=== PATIENT | female | born 1940 | race Caucasian/White ===

== ENCOUNTER 2023-08-01 06:55 | Inpatient (IN) | payer OTHER ==
[~2023-08-01] VITALS: Ht 165.1 cm; Wt 104.3 kg
[2023-08-01] VITALS (11 sets, daily range): BP systolic 113–195; BP diastolic 51–89; PULSE 78–132; RESP 12–32; TEMP 97.3–98.3; O2SAT 90–100
[2023-08-01] MEDS ORDERED: methylPREDNISolone SS 125 MG/2 ML VIAL IVP ONE (07:05)
[2023-08-01] MEDS ORDERED: ALBUTEROL SULFATE/IPRATROPIU 3 ML SOL IH ONE (07:05)
[2023-08-01] MEDS ORDERED: NACL 0.9% 500 ML IV SCH (07:05)
[2023-08-01] MEDS ORDERED: NITROGLYCERIN 0.4 MG TAB SL ONE (07:20)
[2023-08-01] MEDS ORDERED: FUROSEMIDE 40 MG/4 ML VIAL IVP ONE (07:20)
[2023-08-01 07:27] LABS: BASOPHILS # (AUTO) 0.1 K/uL (0.00-0.22); BASOPHILS % (AUTO) 0.5 % (0.0-2.0); EOSINOPHILS # (AUTO) 0.1 K/uL (0-0.4); EOSINOPHILS % (AUTO) 0.7 % (0.0-4.0); HEMATOCRIT 38.3 % (36-48); HEMOGLOBIN 12.2 g/dL (12.0-16.0); LYMPHOCYTES % (AUTO) 19.9 % (20.5-51.1); MEAN CORPUSCULAR HEMOGLOBIN 27 pg (27-31); MEAN CORPUSCULAR HGB CONC 32 g/dL (33-37); MEAN CORPUSCULAR VOLUME 85.9 fL (80-94); MONOCYTES # (AUTO) 1.4 K/uL (0.8-1.0); NEUTROPHILS # (AUTO) 10.6 K/uL (1.8-7.7); NEUTROPHILS % (AUTO) 69.9 % (42.2-75.2); PLATELET COUNT (AUTO) 416 K/uL (140-450); RED BLOOD CELL COUNT(AUTO) 4.46 MIL/uL (4.20-5.40); RED CELL DISTRIBUTION WIDTH 13.5 % (11.6-13.7); WHITE BLOOD COUNT (AUTO) 15.2 K/uL (4.8-10.8)
[2023-08-01 07:32] LABS: INR 0.99 (0.8-1.2); PARTIAL THROMBOPLASTIN TIME 26.3 secs (22-35.6); PROTHROMBIN TIME 10.4 secs (10.8-13.4)
[2023-08-01] MEDS ORDERED: VANCOMYCIN 1,000 MG in DEXTROSE 5% 250 ML IV ONE (07:35)
[2023-08-01] MEDS ORDERED: PIPERACILLIN/TAZOBACTAM 3.375 GM in DEXTROSE 5% 50 ML IV ONE (07:35)
[2023-08-01 07:41] LABS: LACTIC ACID 4.2 mmol/L (0.4-2.0)
[2023-08-01] MEDS ORDERED: PIPERACILLIN/TAZOBACTAM 3.375 GM VIAL IV ONE (07:45)
[2023-08-01 07:48] LABS: ALANINE AMINOTRANSFERASE 19 U/L (12-78); ALBUMIN 2.9 g/dL (3.4-5.0); ALKALINE PHOSPHATASE 134 U/L (50-136); ANION GAP 7.3 (8-16); ASPARTATE AMINOTRANSFERASE 22 U/L (15-37); CARBON DIOXIDE 39.9 mmol/L (21-32); CHLORIDE 83 mmol/L (98-107); GLUCOSE 294 mg/dL (74-106); POTASSIUM 4.2 mmol/L (3.5-5.1); SODIUM SERUM 126 mmol/L (136-145); TOTAL BILIRUBIN 0.4 mg/dL (0.0-1.0); TOTAL PROTEIN, SERUM 7.8 g/dL (6.4-8.2); UREA NITROGEN, BLOOD 12 mg/dL (7-18)
[2023-08-01 07:49] LABS: CREATINE KINASE, TOTAL 103 U/L (26-192); LIPASE 42 U/L (16-77)
[2023-08-01 07:55] LABS: FLU A ANTIGEN negative (NEGATIVE)
[2023-08-01 07:56] LABS: FLU B ANTIGEN negative (NEGATIVE)
[2023-08-01] MEDS ORDERED: VANCOMYCIN 1,000 MG VIAL ONE (08:20)
[2023-08-01] MEDS ORDERED: DILTIAZEM 25 MG/5 ML VIAL IVP ONE (08:30)
[2023-08-01] MEDS ORDERED: DILTIAZEM 30 MG TAB PO ONE (08:55)
[2023-08-01] MEDS ORDERED: HYDR-3320 PO (09:51)
[2023-08-01] MEDS ORDERED: OMEP40EC23 PO (09:51)
[2023-08-01] MEDS ORDERED: LEVO0.087 PO (09:51)
[2023-08-01] MEDS ORDERED: DULO20EC PO (09:51)
[2023-08-01 09:54] LABS: BILIRUBIN,URINE NEGATIVE (NEGATIVE); BLOOD, URINE 1+ (NEGATIVE); LEUKOCYTE ESTERASE ,URINE 1+ (NEGATIVE); NITRITE, URINE NEGATIVE (NEGATIVE); PH,URINE 6.5 (5.0-9.0); PROTEIN,URINE NEGATIVE (NEGATIVE); UGLUCOSE 1+ (NEGATIVE); UROBILINOGEN,URINE 0.2 EU/dL (0.2 - 1)
[2023-08-01 09:56] LABS: BLOOD GAS BASE EXCESS 14.7 mmol/L (-2.0-2.0); BLOOD GAS HCO3 43.1 mmol/L (22-26); BLOOD GAS PCO2 74.2 mmHg (35-45); BLOOD GAS PH 7.382 (7.35-7.45); BLOOD GAS PO2 76.1 mmHg (75-100)
[2023-08-01 09:57] LABS: BLOOD GAS O2 SAT% 94.4 % (92.0-98.5)
[2023-08-01 09:57] LABS: COLOR,URINE AMBER (YELLOW)
[2023-08-01] MEDS ORDERED: INSU10SU2 SC (09:57)
[2023-08-01 10:02] LABS: APPEARANCE,URINE CLOUDY (CLEAR); BACTERIA,URINE >30 (MANY) /HPF (None Seen); SQUAMOUS EPITHELIAL CELL,UR 0-3 (FEW) /LPF (0-3 (FEW))
[2023-08-01] MEDS: BLOOD GLUCOSE MONITORING 1 DEV DEV FS SCH ×3 (13:52→20:59)
[2023-08-01] MEDS: INSULIN LISPRO SLIDING SCALE 100 UNITS/ML VIAL SUBQ PRN ×3 (13:55→21:05)
[2023-08-01] MEDS ORDERED: PIPERACILLIN/TAZOBACTAM 3.375 GM in DEXTROSE 5% 50 ML IV SCH (18:00)
[2023-08-01] MEDS ORDERED: ACETAMINOPHEN 325 MG TAB PO PRN (18:25)
[2023-08-01] MEDS ORDERED: ONDANSETRON 4 MG/2 ML VIAL IVP PRN (18:25)
[2023-08-01] MEDS ORDERED: LORazepam 2 MG/ML VIAL IVP PRN (18:25)
[2023-08-01] MEDS: ALBUTEROL SULFATE/IPRATROPIU 3 ML SOL IH SCH (19:21)
[2023-08-01 20:45] LABS: LACTIC ACID 3.5 mmol/L (0.4-2.0)
[2023-08-01] MEDS: methylPREDNISolone SS 40 MG/ML VIAL IVP SCH (21:00)
[2023-08-02] VITALS (11 sets, daily range): BP systolic 125–160; BP diastolic 54–102; PULSE 70–140; RESP 13–32; TEMP 96.8–97.7; O2SAT 91–98
[2023-08-02] MEDS: ALBUTEROL SULFATE/IPRATROPIU 3 ML SOL IH SCH ×4 (00:47→19:06)
[2023-08-02 06:17] LABS: HEMATOCRIT 32.7 % (36-48); HEMOGLOBIN 10.7 g/dL (12.0-16.0); LYMPHOCYTES # (AUTO) 0.6 K/uL (2.5-16.5); LYMPHOCYTES % (AUTO) 3.3 % (20.5-51.1); MEAN CORPUSCULAR HEMOGLOBIN 27 pg (27-31); MEAN CORPUSCULAR HGB CONC 33 g/dL (33-37); MEAN CORPUSCULAR VOLUME 83.9 fL (80-94); MONOCYTES % (AUTO) 6.1 % (1.7-9.3); NEUTROPHILS # (AUTO) 15.5 K/uL (1.8-7.7); NEUTROPHILS % (AUTO) 90.6 % (42.2-75.2); PLATELET COUNT (AUTO) 374 K/uL (140-450); RED CELL DISTRIBUTION WIDTH 13.4 % (11.6-13.7); WHITE BLOOD COUNT (AUTO) 17.1 K/uL (4.8-10.8)
[2023-08-02] MEDS: LEVOTHYROXINE 0.088 MG TAB PO SCH (06:26)
[2023-08-02] MEDS: BLOOD GLUCOSE MONITORING 1 DEV DEV FS SCH ×4 (07:15→21:09)
[2023-08-02 08:36] LABS: ANION GAP 5.7 (8-16); CALCIUM 8.7 mg/dL (8.5-10.1); CHLORIDE 85 mmol/L (98-107); CREATININE 0.8 mg/dL (0.6-1.3); GLUCOSE 195 mg/dL (74-106); POTASSIUM 3.6 mmol/L (3.5-5.1); SODIUM SERUM 130 mmol/L (136-145); UREA NITROGEN, BLOOD 13 mg/dL (7-18)
[2023-08-02 08:40] LABS: CARBON DIOXIDE 42.9 mmol/L (21-32)
[2023-08-02] MEDS ORDERED: NON-FORMULARY ITEM (Losartan/Hydrochlorothiazide (Losartan-Hctz 100-25 mg Tab) 1 TAB) PO SCH (09:00)
[2023-08-02] MEDS ORDERED: NON-FORMULARY ITEM (Omeprazole* (Prilosec*) 1 CAP) PO SCH (09:00)
[2023-08-02] MEDS ORDERED: hydroCHLOROthiazide 25 MG TAB PO SCH (09:00)
[2023-08-02] MEDS: LOSARTAN 50 MG TAB PO SCH (09:17)
[2023-08-02] MEDS: PANTOPRAZOLE 40 MG TABEC PO SCH (09:17)
[2023-08-02] MEDS: INSULIN NPH HUM/REG INSULIN HM 100 UNIT/ML 10 ML VIAL SUBQ SCH ×2 (09:21→17:08)
[2023-08-02] MEDS: methylPREDNISolone SS 40 MG/ML VIAL IVP SCH ×2 (09:28→21:08)
[2023-08-02] MEDS: INSULIN LISPRO SLIDING SCALE 100 UNITS/ML VIAL SUBQ PRN (11:37)
[2023-08-02] MEDS: DULOXETINE HCL 20 MG PO SCH (12:20)
[2023-08-02] MEDS ORDERED: DIGOXIN 0.25 MG/ML AMP IV SCH ×2 (14:39→21:00)
[2023-08-02] MEDS: HYDROcodone/APAP 5/325 MG 1 TAB TAB PO PRN (15:24)
[2023-08-02] MEDS: DILTIAZEM 60 MG TAB PO SCH ×2 (15:56→21:08)
[2023-08-02] MEDS: acetaZOLAMIDE sodium 500 MG VIAL IVP SCH (16:02)
[2023-08-02] MEDS: FUROSEMIDE 40 MG/4 ML VIAL IVP SCH (16:03)
[2023-08-03] VITALS (10 sets, daily range): BP systolic 139–169; BP diastolic 48–88; PULSE 60–88; RESP 18–20; TEMP 96.2–97.9; O2SAT 94–100
[2023-08-03] MEDS: ALBUTEROL SULFATE/IPRATROPIU 3 ML SOL IH SCH ×4 (01:41→20:00)
[2023-08-03] MEDS ORDERED: DIGOXIN 0.25 MG/ML AMP IV SCH (03:00)
[2023-08-03] MEDS: LEVOTHYROXINE 0.088 MG TAB PO SCH (05:43)
[2023-08-03] MEDS: DILTIAZEM 60 MG TAB PO SCH ×3 (05:43→22:08)
[2023-08-03 06:40] LABS: HEMOGLOBIN 11.8 g/dL (12.0-16.0); LYMPHOCYTES # (AUTO) 0.3 K/uL (2.5-16.5); LYMPHOCYTES % (AUTO) 1.9 % (20.5-51.1); MEAN CORPUSCULAR HEMOGLOBIN 27 pg (27-31); MEAN CORPUSCULAR HGB CONC 32 g/dL (33-37); MEAN CORPUSCULAR VOLUME 85.5 fL (80-94); MONOCYTES # (AUTO) 0.4 K/uL (0.8-1.0); MONOCYTES % (AUTO) 2.3 % (1.7-9.3); NEUTROPHILS # (AUTO) 16.2 K/uL (1.8-7.7); NEUTROPHILS % (AUTO) 95.8 % (42.2-75.2); PLATELET COUNT (AUTO) 378 K/uL (140-450); RED BLOOD CELL COUNT(AUTO) 4.33 MIL/uL (4.20-5.40); RED CELL DISTRIBUTION WIDTH 13.5 % (11.6-13.7)
[2023-08-03] MEDS: INSULIN LISPRO SLIDING SCALE 100 UNITS/ML VIAL SUBQ PRN ×4 (07:00→22:12)
[2023-08-03] MEDS: BLOOD GLUCOSE MONITORING 1 DEV DEV FS SCH ×4 (07:01→21:00)
[2023-08-03] MEDS: INSULIN NPH HUM/REG INSULIN HM 100 UNIT/ML 10 ML VIAL SUBQ SCH ×2 (07:04→16:48)
[2023-08-03 07:06] LABS: ALANINE AMINOTRANSFERASE 24 U/L (12-78); ALBUMIN 2.9 g/dL (3.4-5.0); ALKALINE PHOSPHATASE 117 U/L (50-136); ANION GAP 6.1 (8-16); ASPARTATE AMINOTRANSFERASE 27 U/L (15-37); CHLORIDE 83 mmol/L (98-107); CREATININE 0.9 mg/dL (0.6-1.3); GLUCOSE 155 mg/dL (74-106); MAGNESIUM 1.8 mg/dL (1.8-2.4); POTASSIUM 3.8 mmol/L (3.5-5.1); SODIUM SERUM 129 mmol/L (136-145); TOTAL BILIRUBIN 0.4 mg/dL (0.0-1.0); TOTAL PROTEIN, SERUM 7.8 g/dL (6.4-8.2); UREA NITROGEN, BLOOD 17 mg/dL (7-18)
[2023-08-03 07:11] LABS: CARBON DIOXIDE 43.7 mmol/L (21-32)
[2023-08-03] MEDS: methylPREDNISolone SS 40 MG/ML VIAL IVP SCH ×2 (08:35→22:08)
[2023-08-03] MEDS: FUROSEMIDE 40 MG/4 ML VIAL IVP SCH ×2 (08:35→18:36)
[2023-08-03] MEDS ORDERED: hydrALAZINE 20 MG/ML VIAL IVP PRN (08:55)
[2023-08-03] MEDS: PANTOPRAZOLE 40 MG TABEC PO SCH (09:27)
[2023-08-03] MEDS: DULOXETINE HCL 20 MG PO SCH (09:28)
[2023-08-03] MEDS: LOSARTAN 50 MG TAB PO SCH (09:28)
[2023-08-03] MEDS: acetaZOLAMIDE sodium 500 MG VIAL IVP SCH ×2 (09:33→18:35)
[2023-08-04] VITALS (12 sets, daily range): BP systolic 112–142; BP diastolic 46–77; PULSE 61–92; RESP 18–27; TEMP 97.2–98.2; O2SAT 93–100
[2023-08-04] MEDS: ALBUTEROL SULFATE/IPRATROPIU 3 ML SOL IH SCH ×4 (01:00→19:51)
[2023-08-04] MEDS: hydrALAZINE 25 MG TAB PO SCH ×3 (01:35→12:24)
[2023-08-04] MEDS: HYDROcodone/APAP 5/325 MG 1 TAB TAB PO PRN ×2 (01:40→18:53)
[2023-08-04] MEDS: DILTIAZEM 60 MG TAB PO SCH ×3 (04:38→20:42)
[2023-08-04] MEDS: FUROSEMIDE 40 MG/4 ML VIAL IVP SCH ×2 (04:38→20:41)
[2023-08-04] MEDS: LEVOTHYROXINE 0.088 MG TAB PO SCH (06:30)
[2023-08-04] MEDS: BLOOD GLUCOSE MONITORING 1 DEV DEV FS SCH ×4 (06:33→20:26)
[2023-08-04] MEDS: INSULIN NPH HUM/REG INSULIN HM 100 UNIT/ML 10 ML VIAL SUBQ SCH ×2 (06:49→16:23)
[2023-08-04 06:54] LABS: HEMATOCRIT 37.1 % (36-48); HEMOGLOBIN 11.8 g/dL (12.0-16.0); LYMPHOCYTES # (AUTO) 0.4 K/uL (2.5-16.5); LYMPHOCYTES % (AUTO) 2.9 % (20.5-51.1); MEAN CORPUSCULAR HEMOGLOBIN 27 pg (27-31); MEAN CORPUSCULAR HGB CONC 32 g/dL (33-37); MEAN CORPUSCULAR VOLUME 85.1 fL (80-94); MONOCYTES # (AUTO) 0.5 K/uL (0.8-1.0); MONOCYTES % (AUTO) 3.3 % (1.7-9.3); NEUTROPHILS # (AUTO) 14.1 K/uL (1.8-7.7); NEUTROPHILS % (AUTO) 93.8 % (42.2-75.2); PLATELET COUNT (AUTO) 359 K/uL (140-450); RED BLOOD CELL COUNT(AUTO) 4.36 MIL/uL (4.20-5.40); RED CELL DISTRIBUTION WIDTH 13.5 % (11.6-13.7)
[2023-08-04 07:46] LABS: ANION GAP 6.3 (8-16); CALCIUM 8.5 mg/dL (8.5-10.1); CHLORIDE 84 mmol/L (98-107); CREATININE 0.9 mg/dL (0.6-1.3); GLUCOSE 126 mg/dL (74-106); POTASSIUM 3.3 mmol/L (3.5-5.1); SODIUM SERUM 130 mmol/L (136-145); UREA NITROGEN, BLOOD 29 mg/dL (7-18)
[2023-08-04 08:00] LABS: FREE T4 (FREE THYROXINE) 1.02 ng/dL (0.76-1.46); THYROID STIMULATING HORMONE 0.89 uIU/mL (0.34-3.74)
[2023-08-04] MEDS: methylPREDNISolone SS 40 MG/ML VIAL IVP SCH ×2 (08:45→20:41)
[2023-08-04] MEDS: acetaZOLAMIDE sodium 500 MG VIAL IVP SCH ×2 (08:47→22:12)
[2023-08-04] MEDS ORDERED: POTASSIUM CHLORIDE 20% 40 MEQ/15 ML UDC PO SCH (09:00)
[2023-08-04] MEDS: PANTOPRAZOLE 40 MG TABEC PO SCH (09:02)
[2023-08-04] MEDS: DULOXETINE HCL 20 MG PO SCH (09:02)
[2023-08-04] MEDS: INSULIN LISPRO SLIDING SCALE 100 UNITS/ML VIAL SUBQ PRN ×2 (11:29→16:22)
[2023-08-04] MEDS ORDERED: MAG SULF 2000 MG/WATER PREMIX 50 ML IV SCH (14:30)
[2023-08-04] MEDS ORDERED: KCL 20 MEQ IN 100 mL PREMIX 200 ML IV SCH (17:00)
[2023-08-04] MEDS ORDERED: POTASSIUM CHLORIDE 40 MEQ, LIDOCAINE 1% 25 MG in NACL 0.9% 250 ML IV SCH (17:30)
[2023-08-04] MEDS: APIXABAN 2.5 MG TAB PO SCH (20:44)
[2023-08-05] VITALS (11 sets, daily range): BP systolic 128–163; BP diastolic 62–94; PULSE 66–84; RESP 17–28; TEMP 96.1–98.4; O2SAT 95–100
[2023-08-05] MEDS: ALBUTEROL SULFATE/IPRATROPIU 3 ML SOL IH SCH ×4 (01:03→19:15)
[2023-08-05] MEDS: FUROSEMIDE 40 MG/4 ML VIAL IVP SCH ×2 (04:51→14:50)
[2023-08-05] MEDS: DILTIAZEM 60 MG TAB PO SCH ×3 (04:53→21:12)
[2023-08-05] MEDS: LEVOTHYROXINE 0.088 MG TAB PO SCH (05:44)
[2023-08-05] MEDS: INSULIN NPH HUM/REG INSULIN HM 100 UNIT/ML 10 ML VIAL SUBQ SCH ×2 (06:46→17:24)
[2023-08-05] MEDS: INSULIN LISPRO SLIDING SCALE 100 UNITS/ML VIAL SUBQ PRN ×5 (06:47→21:25)
[2023-08-05 06:58] LABS: HEMATOCRIT 37.6 % (36-48); HEMOGLOBIN 11.7 g/dL (12.0-16.0); LYMPHOCYTES # (AUTO) 0.3 K/uL (2.5-16.5); LYMPHOCYTES % (AUTO) 1.2 % (20.5-51.1); MEAN CORPUSCULAR HEMOGLOBIN 27 pg (27-31); MEAN CORPUSCULAR HGB CONC 31 g/dL (33-37); MEAN CORPUSCULAR VOLUME 87.2 fL (80-94); MONOCYTES # (AUTO) 0.7 K/uL (0.8-1.0); MONOCYTES % (AUTO) 3.3 % (1.7-9.3); NEUTROPHILS # (AUTO) 20.8 K/uL (1.8-7.7); NEUTROPHILS % (AUTO) 95.5 % (42.2-75.2); PLATELET COUNT (AUTO) 345 K/uL (140-450); RED BLOOD CELL COUNT(AUTO) 4.32 MIL/uL (4.20-5.40); RED CELL DISTRIBUTION WIDTH 13.9 % (11.6-13.7); WHITE BLOOD COUNT (AUTO) 21.7 K/uL (4.8-10.8)
[2023-08-05 07:44] LABS: ALANINE AMINOTRANSFERASE 63 U/L (12-78); ALBUMIN 2.9 g/dL (3.4-5.0); ALKALINE PHOSPHATASE 105 U/L (50-136); ANION GAP 6.4 (8-16); ASPARTATE AMINOTRANSFERASE 38 U/L (15-37); CALCIUM 8.4 mg/dL (8.5-10.1); CHLORIDE 90 mmol/L (98-107); CREATININE 1.2 mg/dL (0.6-1.3); GLUCOSE 156 mg/dL (74-106); MAGNESIUM 2.7 mg/dL (1.8-2.4); PHOSPHORUS 5.8 mg/dL (2.5-4.9); POTASSIUM 3.9 mmol/L (3.5-5.1); SODIUM SERUM 134 mmol/L (136-145); TOTAL BILIRUBIN 0.4 mg/dL (0.0-1.0); TOTAL PROTEIN, SERUM 7.3 g/dL (6.4-8.2); UREA NITROGEN, BLOOD 39 mg/dL (7-18)
[2023-08-05 07:47] LABS: CARBON DIOXIDE 41.5 mmol/L (21-32)
[2023-08-05] MEDS: PANTOPRAZOLE 40 MG TABEC PO SCH (08:22)
[2023-08-05] MEDS: APIXABAN 2.5 MG TAB PO SCH ×2 (08:23→21:14)
[2023-08-05] MEDS: POTASSIUM CHLORIDE 10 MEQ TABER PO SCH (08:23)
[2023-08-05] MEDS: DULOXETINE HCL 20 MG PO SCH (08:28)
[2023-08-05] MEDS: BLOOD GLUCOSE MONITORING 1 DEV DEV FS SCH ×4 (08:28→21:10)
[2023-08-05] MEDS: acetaZOLAMIDE sodium 500 MG VIAL IVP SCH ×2 (09:07→21:11)
[2023-08-05] MEDS: methylPREDNISolone SS 40 MG/ML VIAL IVP SCH ×2 (09:07→21:12)
[2023-08-05] MEDS: FUROSEMIDE 20 MG/2 ML VIAL IVP SCH (21:12)
[2023-08-05] MEDS ORDERED: WATER STERILE 10 ML MC ONE (21:12)
[2023-08-06] VITALS (10 sets, daily range): BP systolic 137–150; BP diastolic 51–70; PULSE 62–95; RESP 17–21; TEMP 97.5–98.7; O2SAT 93–99
[2023-08-06] MEDS: ALBUTEROL SULFATE/IPRATROPIU 3 ML SOL IH SCH ×4 (01:00→19:36)
[2023-08-06] MEDS: DILTIAZEM 60 MG TAB PO SCH ×3 (04:37→20:44)
[2023-08-06] MEDS: LEVOTHYROXINE 0.088 MG TAB PO SCH (05:48)
[2023-08-06 06:32] LABS: CALCIUM 8.7 mg/dL (8.5-10.1); CHLORIDE 92 mmol/L (98-107); GLUCOSE 66 mg/dL (74-106); SODIUM SERUM 139 mmol/L (136-145); UREA NITROGEN, BLOOD 42 mg/dL (7-18)
[2023-08-06 06:33] LABS: ANION GAP 5.6 (8-16)
[2023-08-06 06:35] LABS: MAGNESIUM 2.4 mg/dL (1.8-2.4)
[2023-08-06 06:37] LABS: CARBON DIOXIDE 45.4 mmol/L (21-32)
[2023-08-06] MEDS: BLOOD GLUCOSE MONITORING 1 DEV DEV FS SCH ×4 (06:50→20:42)
[2023-08-06] MEDS: INSULIN NPH HUM/REG INSULIN HM 100 UNIT/ML 10 ML VIAL SUBQ SCH ×2 (06:51→16:58)
[2023-08-06 07:09] LABS: BASOPHILS % (AUTO) 0.1 % (0.0-2.0); HEMATOCRIT 37.8 % (36-48); HEMOGLOBIN 11.8 g/dL (12.0-16.0); LYMPHOCYTES # (AUTO) 0.2 K/uL (2.5-16.5); LYMPHOCYTES % (AUTO) 1.1 % (20.5-51.1); MEAN CORPUSCULAR HEMOGLOBIN 27 pg (27-31); MEAN CORPUSCULAR HGB CONC 31 g/dL (33-37); MEAN CORPUSCULAR VOLUME 87.2 fL (80-94); MONOCYTES # (AUTO) 0.9 K/uL (0.8-1.0); NEUTROPHILS # (AUTO) 17.3 K/uL (1.8-7.7); NEUTROPHILS % (AUTO) 93.8 % (42.2-75.2); PLATELET COUNT (AUTO) 284 K/uL (140-450); RED BLOOD CELL COUNT(AUTO) 4.34 MIL/uL (4.20-5.40); WHITE BLOOD COUNT (AUTO) 18.4 K/uL (4.8-10.8)
[2023-08-06] MEDS: APIXABAN 2.5 MG TAB PO SCH ×2 (09:00→20:46)
[2023-08-06] MEDS: acetaZOLAMIDE sodium 500 MG VIAL IVP SCH ×2 (09:53→21:20)
[2023-08-06] MEDS: FUROSEMIDE 20 MG/2 ML VIAL IVP SCH ×2 (09:54→20:44)
[2023-08-06] MEDS: methylPREDNISolone SS 40 MG/ML VIAL IVP SCH (09:54)
[2023-08-06] MEDS: DULOXETINE HCL 20 MG PO SCH (09:55)
[2023-08-06] MEDS: POTASSIUM CHLORIDE 10 MEQ TABER PO SCH (09:55)
[2023-08-06] MEDS: PANTOPRAZOLE 40 MG TABEC PO SCH (09:55)
[2023-08-06] MEDS ORDERED: APIX2.5 PO (09:59)
[2023-08-06] MEDS ORDERED: AZIT250T4 PO (09:59)
[2023-08-06] MEDS ORDERED: DILT60TA97 PO (09:59)
[2023-08-06] MEDS ORDERED: METH4TAB1 PO (10:00)
[2023-08-06] MEDS: HYDROcodone/APAP 5/325 MG 1 TAB TAB PO PRN (11:43)
[2023-08-06] MEDS: INSULIN LISPRO SLIDING SCALE 100 UNITS/ML VIAL SUBQ PRN (16:55)
[2023-08-07] VITALS (16 sets, daily range): BP systolic 120–166; BP diastolic 60–80; PULSE 72–102; RESP 16–24; TEMP 96.7–98.2; O2SAT 92–99
[2023-08-07] MEDS: ALBUTEROL SULFATE/IPRATROPIU 3 ML SOL IH SCH ×4 (01:06→19:42)
[2023-08-07] MEDS: DILTIAZEM 60 MG TAB PO SCH ×3 (05:31→21:21)
[2023-08-07] MEDS: LEVOTHYROXINE 0.088 MG TAB PO SCH (06:12)
[2023-08-07] MEDS ORDERED: DEXTROSE 50% 50 ML SYR IVP PRN (06:25)
[2023-08-07] MEDS: BLOOD GLUCOSE MONITORING 1 DEV DEV FS SCH ×4 (06:48→20:00)
[2023-08-07] MEDS: INSULIN NPH HUM/REG INSULIN HM 100 UNIT/ML 10 ML VIAL SUBQ SCH ×2 (06:52→21:26)
[2023-08-07 07:03] LABS: HEMATOCRIT 39.9 % (36-48); HEMOGLOBIN 12.4 g/dL (12.0-16.0); LYMPHOCYTES # (AUTO) 0.3 K/uL (2.5-16.5); MEAN CORPUSCULAR HEMOGLOBIN 27 pg (27-31); MEAN CORPUSCULAR HGB CONC 31 g/dL (33-37); MEAN CORPUSCULAR VOLUME 88.3 fL (80-94); MONOCYTES # (AUTO) 1.7 K/uL (0.8-1.0); NEUTROPHILS # (AUTO) 16.7 K/uL (1.8-7.7); PLATELET COUNT (AUTO) 275 K/uL (140-450); RED BLOOD CELL COUNT(AUTO) 4.52 MIL/uL (4.20-5.40); WHITE BLOOD COUNT (AUTO) 18.7 K/uL (4.8-10.8)
[2023-08-07 07:11] LABS: ANION GAP 6.5 (8-16); CALCIUM 8.6 mg/dL (8.5-10.1); CHLORIDE 97 mmol/L (98-107); CREATININE 0.9 mg/dL (0.6-1.3); POTASSIUM 3.6 mmol/L (3.5-5.1); SODIUM SERUM 143 mmol/L (136-145); UREA NITROGEN, BLOOD 46 mg/dL (7-18)
[2023-08-07 07:14] LABS: CARBON DIOXIDE 43.1 mmol/L (21-32)
[2023-08-07 07:15] LABS: GLUCOSE 45 mg/dL (74-106)
[2023-08-07] MEDS: acetaZOLAMIDE sodium 500 MG VIAL IVP SCH (08:25)
[2023-08-07] MEDS: FUROSEMIDE 20 MG/2 ML VIAL IVP SCH (08:26)
[2023-08-07] MEDS: POTASSIUM CHLORIDE 10 MEQ TABER PO SCH (08:26)
[2023-08-07] MEDS: PANTOPRAZOLE 40 MG TABEC PO SCH (08:26)
[2023-08-07] MEDS: DULOXETINE HCL 20 MG PO SCH (08:27)
[2023-08-07 08:35] LABS: LYMPHOCYTES % (AUTO) 1.5 % (20.5-51.1); NEUTROPHILS % (AUTO) 89.5 % (42.2-75.2)
[2023-08-07] MEDS: APIXABAN 2.5 MG TAB PO SCH ×2 (08:39→21:18)
[2023-08-07] MEDS: INSULIN LISPRO SLIDING SCALE 100 UNITS/ML VIAL SUBQ PRN ×2 (11:44→15:51)
[2023-08-08] VITALS (7 sets, daily range): BP systolic 116–142; BP diastolic 58–73; PULSE 75–100; RESP 18–24; TEMP 97–98.2; O2SAT 95–98
[2023-08-08] MEDS: FUROSEMIDE 20 MG/2 ML VIAL IVP SCH ×5 (00:03→20:51)
[2023-08-08] MEDS: acetaZOLAMIDE sodium 500 MG VIAL IVP SCH ×3 (00:10→20:51)
[2023-08-08] MEDS: ALBUTEROL SULFATE/IPRATROPIU 3 ML SOL IH SCH ×4 (01:00→18:44)
[2023-08-08] MEDS: DILTIAZEM 60 MG TAB PO SCH ×3 (04:55→20:50)
[2023-08-08] MEDS: LEVOTHYROXINE 0.088 MG TAB PO SCH (05:46)
[2023-08-08] MEDS: BLOOD GLUCOSE MONITORING 1 DEV DEV FS SCH ×4 (06:00→20:58)
[2023-08-08 07:03] LABS: BASOPHILS % (AUTO) 0.1 % (0.0-2.0); EOSINOPHILS % (AUTO) 0.1 % (0.0-4.0); HEMATOCRIT 39.5 % (36-48); HEMOGLOBIN 12.2 g/dL (12.0-16.0); LYMPHOCYTES # (AUTO) 0.8 K/uL (2.5-16.5); LYMPHOCYTES % (AUTO) 4.1 % (20.5-51.1); MEAN CORPUSCULAR HEMOGLOBIN 27 pg (27-31); MEAN CORPUSCULAR HGB CONC 31 g/dL (33-37); MEAN CORPUSCULAR VOLUME 87.2 fL (80-94); MONOCYTES # (AUTO) 2.3 K/uL (0.8-1.0); MONOCYTES % (AUTO) 11.7 % (1.7-9.3); NEUTROPHILS # (AUTO) 16.7 K/uL (1.8-7.7); PLATELET COUNT (AUTO) 245 K/uL (140-450); RED BLOOD CELL COUNT(AUTO) 4.53 MIL/uL (4.20-5.40); RED CELL DISTRIBUTION WIDTH 13.7 % (11.6-13.7); WHITE BLOOD COUNT (AUTO) 19.8 K/uL (4.8-10.8)
[2023-08-08 07:29] LABS: ALANINE AMINOTRANSFERASE 80 U/L (12-78); ALBUMIN 2.5 g/dL (3.4-5.0); ALKALINE PHOSPHATASE 118 U/L (50-136); ANION GAP 5.1 (8-16); ASPARTATE AMINOTRANSFERASE 40 U/L (15-37); CALCIUM 8.5 mg/dL (8.5-10.1); CHLORIDE 95 mmol/L (98-107); CREATININE 0.8 mg/dL (0.6-1.3); GLUCOSE 126 mg/dL (74-106); POTASSIUM 3.3 mmol/L (3.5-5.1); SODIUM SERUM 139 mmol/L (136-145); TOTAL BILIRUBIN 0.4 mg/dL (0.0-1.0); TOTAL PROTEIN, SERUM 6.4 g/dL (6.4-8.2); UREA NITROGEN, BLOOD 40 mg/dL (7-18)
[2023-08-08 07:37] LABS: CARBON DIOXIDE 42.2 mmol/L (21-32)
[2023-08-08] MEDS: INSULIN NPH HUM/REG INSULIN HM 100 UNIT/ML 10 ML VIAL SUBQ SCH ×2 (09:00→21:00)
[2023-08-08] MEDS ORDERED: POTASSIUM CHLORIDE 10 MEQ TABER PO SCH (09:45)
[2023-08-08] MEDS: POTASSIUM CHLORIDE 10 MEQ TABER PO SCH (09:46)
[2023-08-08] MEDS: APIXABAN 2.5 MG TAB PO SCH ×2 (09:47→20:50)
[2023-08-08] MEDS: PANTOPRAZOLE 40 MG TABEC PO SCH (09:47)
[2023-08-08] MEDS: DULOXETINE HCL 20 MG PO SCH (09:52)
[2023-08-08] MEDS ORDERED: POTASSIUM CHLORIDE 40 MEQ, LIDOCAINE 1% 25 MG in NACL 0.9% 250 ML IV SCH (13:30)
[2023-08-08] MEDS: INSULIN LISPRO SLIDING SCALE 100 UNITS/ML VIAL SUBQ PRN (21:00)
[2023-08-09] VITALS (8 sets, daily range): BP systolic 132–138; BP diastolic 68–106; PULSE 79–96; RESP 16–21; TEMP 97–206.6; O2SAT 95–100
[2023-08-09] MEDS: ALBUTEROL SULFATE/IPRATROPIU 3 ML SOL IH SCH ×4 (01:43→19:26)
[2023-08-09] MEDS: HYDROcodone/APAP 5/325 MG 1 TAB TAB PO PRN (03:10)
[2023-08-09] MEDS: FUROSEMIDE 20 MG/2 ML VIAL IVP SCH ×3 (06:20→21:20)
[2023-08-09] MEDS: LEVOTHYROXINE 0.088 MG TAB PO SCH (06:20)
[2023-08-09] MEDS: DILTIAZEM 60 MG TAB PO SCH ×3 (06:21→21:20)
[2023-08-09] MEDS: BLOOD GLUCOSE MONITORING 1 DEV DEV FS SCH ×4 (06:24→21:16)
[2023-08-09 07:31] LABS: ANION GAP 4.6 (8-16); CALCIUM 8.6 mg/dL (8.5-10.1); CHLORIDE 94 mmol/L (98-107); CREATININE 0.9 mg/dL (0.6-1.3); GLUCOSE 56 mg/dL (74-106); POTASSIUM 3.5 mmol/L (3.5-5.1); SODIUM SERUM 140 mmol/L (136-145); UREA NITROGEN, BLOOD 37 mg/dL (7-18)
[2023-08-09 07:37] LABS: CARBON DIOXIDE 44.9 mmol/L (21-32)
[2023-08-09] MEDS: POTASSIUM CHLORIDE 10 MEQ TABER PO SCH (09:44)
[2023-08-09] MEDS: PANTOPRAZOLE 40 MG TABEC PO SCH (09:45)
[2023-08-09] MEDS: DULOXETINE HCL 20 MG PO SCH (09:46)
[2023-08-09] MEDS: acetaZOLAMIDE sodium 500 MG VIAL IVP SCH ×2 (09:46→21:18)
[2023-08-09] MEDS: APIXABAN 2.5 MG TAB PO SCH ×2 (09:46→21:22)
[2023-08-09] MEDS: INSULIN NPH HUM/REG INSULIN HM 100 UNIT/ML 10 ML VIAL SUBQ SCH ×2 (10:06→21:00)
[2023-08-09 11:00] LABS: BASOPHILS # (AUTO) 0.1 K/uL (0.00-0.22); BASOPHILS % (AUTO) 0.4 % (0.0-2.0); EOSINOPHILS # (AUTO) 0.1 K/uL (0-0.4); EOSINOPHILS % (AUTO) 0.8 % (0.0-4.0); HEMATOCRIT 42.9 % (36-48); HEMOGLOBIN 13.4 g/dL (12.0-16.0); LYMPHOCYTES # (AUTO) 1.1 K/uL (2.5-16.5); LYMPHOCYTES % (AUTO) 6.9 % (20.5-51.1); MEAN CORPUSCULAR HEMOGLOBIN 27 pg (27-31); MEAN CORPUSCULAR HGB CONC 31 g/dL (33-37); MONOCYTES # (AUTO) 2.3 K/uL (0.8-1.0); MONOCYTES % (AUTO) 14.2 % (1.7-9.3); NEUTROPHILS # (AUTO) 12.9 K/uL (1.8-7.7); NEUTROPHILS % (AUTO) 77.7 % (42.2-75.2); PLATELET COUNT (AUTO) 277 K/uL (140-450); RED BLOOD CELL COUNT(AUTO) 4.93 MIL/uL (4.20-5.40); RED CELL DISTRIBUTION WIDTH 14.3 % (11.6-13.7); WHITE BLOOD COUNT (AUTO) 16.5 K/uL (4.8-10.8)
[2023-08-09] MEDS: INSULIN LISPRO SLIDING SCALE 100 UNITS/ML VIAL SUBQ PRN (11:44)
[2023-08-09 21:31] LABS: BLOOD GAS BASE EXCESS 13.1 mmol/L (-2.0-2.0); BLOOD GAS HCO3 42.4 mmol/L (22-26); BLOOD GAS PCO2 77.7 mmHg (35-45); BLOOD GAS PO2 99.4 mmHg (75-100)
[2023-08-09 21:32] LABS: BLOOD GAS O2 SAT% 97.1 % (92.0-98.5)
[2023-08-10] VITALS (10 sets, daily range): BP systolic 109–158; BP diastolic 36–68; PULSE 72–98; RESP 14–21; TEMP 97.1–97.4; O2SAT 94–100
[2023-08-10] MEDS: ALBUTEROL SULFATE/IPRATROPIU 3 ML SOL IH SCH ×4 (01:38→19:17)
[2023-08-10] MEDS: FUROSEMIDE 20 MG/2 ML VIAL IVP SCH ×3 (04:29→21:44)
[2023-08-10] MEDS: DILTIAZEM 60 MG TAB PO SCH ×3 (04:30→21:44)
[2023-08-10] MEDS: LEVOTHYROXINE 0.088 MG TAB PO SCH (06:12)
[2023-08-10] MEDS: BLOOD GLUCOSE MONITORING 1 DEV DEV FS SCH ×4 (06:18→21:52)
[2023-08-10] MEDS: INSULIN LISPRO SLIDING SCALE 100 UNITS/ML VIAL SUBQ PRN ×4 (06:23→22:13)
[2023-08-10 07:05] LABS: BASOPHILS % (AUTO) 0.1 % (0.0-2.0); EOSINOPHILS # (AUTO) 0.1 K/uL (0-0.4); EOSINOPHILS % (AUTO) 0.4 % (0.0-4.0); HEMATOCRIT 42.6 % (36-48); HEMOGLOBIN 13.1 g/dL (12.0-16.0); LYMPHOCYTES # (AUTO) 0.9 K/uL (2.5-16.5); LYMPHOCYTES % (AUTO) 5.4 % (20.5-51.1); MEAN CORPUSCULAR HEMOGLOBIN 27 pg (27-31); MEAN CORPUSCULAR HGB CONC 31 g/dL (33-37); MONOCYTES % (AUTO) 11.3 % (1.7-9.3); NEUTROPHILS # (AUTO) 14.6 K/uL (1.8-7.7); NEUTROPHILS % (AUTO) 82.8 % (42.2-75.2); PLATELET COUNT (AUTO) 256 K/uL (140-450); RED BLOOD CELL COUNT(AUTO) 4.83 MIL/uL (4.20-5.40); RED CELL DISTRIBUTION WIDTH 14.2 % (11.6-13.7); WHITE BLOOD COUNT (AUTO) 17.6 K/uL (4.8-10.8)
[2023-08-10 07:25] LABS: ANION GAP 7.2 (8-16); CALCIUM 8.6 mg/dL (8.5-10.1); CHLORIDE 93 mmol/L (98-107); CREATININE 0.9 mg/dL (0.6-1.3); GLUCOSE 190 mg/dL (74-106); POTASSIUM 3.1 mmol/L (3.5-5.1); SODIUM SERUM 139 mmol/L (136-145); UREA NITROGEN, BLOOD 33 mg/dL (7-18)
[2023-08-10 07:31] LABS: CARBON DIOXIDE 41.9 mmol/L (21-32)
[2023-08-10] MEDS: POTASSIUM CHLORIDE 10 MEQ TABER PO SCH (09:00)
[2023-08-10] MEDS: APIXABAN 2.5 MG TAB PO SCH ×2 (09:05→21:46)
[2023-08-10] MEDS: PANTOPRAZOLE 40 MG TABEC PO SCH (09:06)
[2023-08-10] MEDS: INSULIN NPH HUM/REG INSULIN HM 100 UNIT/ML 10 ML VIAL SUBQ SCH ×2 (09:10→21:52)
[2023-08-10] MEDS: DULOXETINE HCL 20 MG PO SCH (09:11)
[2023-08-10] MEDS ORDERED: POTASSIUM CHLORIDE 20% 40 MEQ/15 ML UDC PO SCH (09:16)
[2023-08-10] MEDS: acetaZOLAMIDE sodium 500 MG VIAL IVP SCH ×2 (11:01→21:52)
[2023-08-11] VITALS (8 sets, daily range): BP systolic 117–130; BP diastolic 46–62; PULSE 67–90; RESP 17–24; TEMP 97.4–98.4; O2SAT 94–100
[2023-08-11] MEDS: ALBUTEROL SULFATE/IPRATROPIU 3 ML SOL IH SCH ×4 (01:00→19:42)
[2023-08-11] MEDS: DILTIAZEM 60 MG TAB PO SCH ×3 (05:39→20:34)
[2023-08-11] MEDS: FUROSEMIDE 20 MG/2 ML VIAL IVP SCH ×3 (05:39→21:53)
[2023-08-11] MEDS: LEVOTHYROXINE 0.088 MG TAB PO SCH (05:40)
[2023-08-11] MEDS: BLOOD GLUCOSE MONITORING 1 DEV DEV FS SCH ×4 (06:37→20:39)
[2023-08-11 07:12] LABS: BASOPHILS % (AUTO) 0.2 % (0.0-2.0); EOSINOPHILS # (AUTO) 0.3 K/uL (0-0.4); EOSINOPHILS % (AUTO) 1.8 % (0.0-4.0); HEMATOCRIT 42.1 % (36-48); HEMOGLOBIN 13.1 g/dL (12.0-16.0); LYMPHOCYTES # (AUTO) 1.3 K/uL (2.5-16.5); LYMPHOCYTES % (AUTO) 7.9 % (20.5-51.1); MEAN CORPUSCULAR HEMOGLOBIN 27 pg (27-31); MEAN CORPUSCULAR HGB CONC 31 g/dL (33-37); MEAN CORPUSCULAR VOLUME 87.1 fL (80-94); MONOCYTES % (AUTO) 11.4 % (1.7-9.3); NEUTROPHILS # (AUTO) 13.4 K/uL (1.8-7.7); NEUTROPHILS % (AUTO) 78.7 % (42.2-75.2); PLATELET COUNT (AUTO) 257 K/uL (140-450); RED BLOOD CELL COUNT(AUTO) 4.83 MIL/uL (4.20-5.40); RED CELL DISTRIBUTION WIDTH 13.8 % (11.6-13.7); WHITE BLOOD COUNT (AUTO) 17.1 K/uL (4.8-10.8)
[2023-08-11 07:15] LABS: ANION GAP 2.3 (8-16); CALCIUM 8.4 mg/dL (8.5-10.1); CHLORIDE 98 mmol/L (98-107); GLUCOSE 108 mg/dL (74-106); POTASSIUM 3.3 mmol/L (3.5-5.1); SODIUM SERUM 142 mmol/L (136-145); UREA NITROGEN, BLOOD 32 mg/dL (7-18)
[2023-08-11 08:07] LABS: MAGNESIUM 1.8 mg/dL (1.8-2.4); PHOSPHORUS 3.7 mg/dL (2.5-4.9)
[2023-08-11] MEDS: INSULIN NPH HUM/REG INSULIN HM 100 UNIT/ML 10 ML VIAL SUBQ SCH ×2 (09:00→20:49)
[2023-08-11] MEDS: POTASSIUM CHLORIDE 10 MEQ TABER PO SCH (09:39)
[2023-08-11] MEDS: APIXABAN 2.5 MG TAB PO SCH ×2 (09:40→20:38)
[2023-08-11] MEDS: PANTOPRAZOLE 40 MG TABEC PO SCH (09:41)
[2023-08-11] MEDS: DULOXETINE HCL 20 MG PO SCH (09:41)
[2023-08-11] MEDS: acetaZOLAMIDE sodium 500 MG VIAL IVP SCH ×2 (09:45→20:39)
[2023-08-11] MEDS: INSULIN LISPRO SLIDING SCALE 100 UNITS/ML VIAL SUBQ PRN ×3 (12:17→20:57)
[2023-08-12 00:34] VITALS: PULSE 91; RESP 16; O2SAT 99
[2023-08-12] MEDS: ALBUTEROL SULFATE/IPRATROPIU 3 ML SOL IH SCH ×2 (00:34→07:52)
[2023-08-12 00:44] VITALS: O2SAT 100
[2023-08-12 04:00] VITALS: BP 119/46; PULSE 89; RESP 17; TEMP 97.5; O2SAT 100
[2023-08-12] MEDS: DILTIAZEM 60 MG TAB PO SCH (05:25)
[2023-08-12] MEDS: FUROSEMIDE 20 MG/2 ML VIAL IVP SCH (05:25)
[2023-08-12] MEDS: LEVOTHYROXINE 0.088 MG TAB PO SCH (06:33)
[2023-08-12 07:09] LABS: BASOPHILS % (AUTO) 0.1 % (0.0-2.0); EOSINOPHILS # (AUTO) 0.3 K/uL (0-0.4); EOSINOPHILS % (AUTO) 1.3 % (0.0-4.0); HEMATOCRIT 41.9 % (36-48); HEMOGLOBIN 12.9 g/dL (12.0-16.0); LYMPHOCYTES # (AUTO) 1.4 K/uL (2.5-16.5); LYMPHOCYTES % (AUTO) 7.1 % (20.5-51.1); MEAN CORPUSCULAR HEMOGLOBIN 27 pg (27-31); MEAN CORPUSCULAR HGB CONC 31 g/dL (33-37); MEAN CORPUSCULAR VOLUME 87.3 fL (80-94); MONOCYTES # (AUTO) 2.2 K/uL (0.8-1.0); MONOCYTES % (AUTO) 10.9 % (1.7-9.3); NEUTROPHILS # (AUTO) 15.9 K/uL (1.8-7.7); NEUTROPHILS % (AUTO) 80.6 % (42.2-75.2); PLATELET COUNT (AUTO) 284 K/uL (140-450); WHITE BLOOD COUNT (AUTO) 19.7 K/uL (4.8-10.8)
[2023-08-12 07:28] LABS: CALCIUM 8.4 mg/dL (8.5-10.1); CHLORIDE 97 mmol/L (98-107); GLUCOSE 97 mg/dL (74-106); POTASSIUM 3.2 mmol/L (3.5-5.1); SODIUM SERUM 143 mmol/L (136-145); UREA NITROGEN, BLOOD 30 mg/dL (7-18)
[2023-08-12 07:50] LABS: ANION GAP 1.7 (8-16); CARBON DIOXIDE 47.5 mmol/L (21-32)
[2023-08-12 07:52] VITALS: PULSE 79; RESP 16; O2SAT 100
[2023-08-12] MEDS: BLOOD GLUCOSE MONITORING 1 DEV DEV FS SCH (08:29)
[2023-08-12] MEDS: PANTOPRAZOLE 40 MG TABEC PO SCH (08:30)
[2023-08-12] MEDS: APIXABAN 2.5 MG TAB PO SCH (08:30)
[2023-08-12] MEDS: INSULIN NPH HUM/REG INSULIN HM 100 UNIT/ML 10 ML VIAL SUBQ SCH (08:31)
[2023-08-12] MEDS: DULOXETINE HCL 20 MG PO SCH (08:33)
[2023-08-12] MEDS: POTASSIUM CHLORIDE 10 MEQ TABER PO SCH (08:37)
[2023-08-12 09:37] VITALS: BP 102/80; RESP 17; TEMP 98.7
== END 2023-08-12 10:38 | disposition hospice, inpatient (51) | DRG 871 ==
LOC: MED 06:55 → MTU 09:06 → MIC 10:51 → MTU 08-02 06:45
PROVIDERS: ADMIT Preventive Medicine Preventive Medicine/Occupational Environmental Medicine; ATTEND Preventive Medicine Preventive Medicine/Occupational Environmental Medicine
PROC: 5A09357 Assistance with Respiratory Ventilation, Less than 24 Consecutive Hours, Continuous Positive Airway Pressure (ICD-10-PCS; principal; 2023-08-01)
PROC: 5A09357 Assistance with Respiratory Ventilation, Less than 24 Consecutive Hours, Continuous Positive Airway Pressure (ICD-10-PCS; 2023-08-04)
DX: A41.9 Sepsis, unspecified organism (principal); J18.9 Pneumonia, unspecified organism; J96.21 Acute and chronic respiratory failure with hypoxia; J96.22 Acute and chronic respiratory failure with hypercapnia; J44.1 Chronic obstructive pulmonary disease with (acute) exacerbation; J45.901 Unspecified asthma with (acute) exacerbation; J44.0 Chronic obstructive pulmonary disease with (acute) lower respiratory infection; L03.116 Cellulitis of left lower limb; E87.1 Hypo-osmolality and hyponatremia; E87.29 Other acidosis; N17.9 Acute kidney failure, unspecified; E11.65 Type 2 diabetes mellitus with hyperglycemia; E03.9 Hypothyroidism, unspecified; D64.9 Anemia, unspecified; I48.91 Unspecified atrial fibrillation; D72.829 Elevated white blood cell count, unspecified; E83.39 Other disorders of phosphorus metabolism; E88.09 Other disorders of plasma-protein metabolism, not elsewhere classified; I11.0 Hypertensive heart disease with heart failure; I50.9 Heart failure, unspecified; Z20.822 Contact with and (suspected) exposure to COVID-19; E83.41 Hypermagnesemia; E83.51 Hypocalcemia; E83.52 Hypercalcemia; E87.6 Hypokalemia; Z79.01 Long term (current) use of anticoagulants; Z99.81 Dependence on supplemental oxygen
CPT/HCPCS: 36415; 36600; 71045; 80048; 80053; 81001; 82550; 82553; 82803; 82948; 83605; 83690; 83735; 83880; 84100; 84439; 84443; 84484; 85025; 85610; 85651; 85730; 86140; 87040; 87081; 87086; 92526; 93005; 94640; 94660; 96365; 96368; 96375; 97110; 97112; 97530; 99291; J0360; J0696; J1120; J1160; J1815; J1940; J2001; J2060; J2405; J2543; J2920; J2930; J3370; J3475; J3480; J7030; J7060; Q0092

== ENCOUNTER 2023-09-12 16:07 | Inpatient (IN) | payer OTHER ==
[~2023-09-12] VITALS: Ht 160 cm; Wt 63.5 kg
[~2023-09-12 16:07] MED LIST: APIX2.5 PO; AZIT250T4 PO; CIPR500T4 PO; DILT60TA97 PO; DULO20EC PO; HYDR-3320 PO; INSU10SU2 SC; LEVO0.087 PO; METH4TAB1 PO; OMEP40EC23 PO
[2023-09-12 16:08] VITALS: BP 141/78; PULSE 84; RESP 18; O2SAT 100
[2023-09-12] MEDS ORDERED: methylPREDNISolone SS 125 MG/2 ML VIAL IVP ONE (16:30)
[2023-09-12] MEDS ORDERED: ALBUTEROL SULFATE/IPRATROPIU 3 ML SOL IH ONE ×2 (16:30→19:15)
[2023-09-12 16:42] LABS: BASOPHILS % (AUTO) 0.2 % (0.0-2.0); HEMATOCRIT 40.3 % (36-48); LYMPHOCYTES # (AUTO) 0.9 K/uL (2.5-16.5); LYMPHOCYTES % (AUTO) 4.2 % (20.5-51.1); MEAN CORPUSCULAR HEMOGLOBIN 28 pg (27-31); MEAN CORPUSCULAR HGB CONC 32 g/dL (33-37); MEAN CORPUSCULAR VOLUME 87.5 fL (80-94); NEUTROPHILS # (AUTO) 19.4 K/uL (1.8-7.7); NEUTROPHILS % (AUTO) 86.6 % (42.2-75.2); PLATELET COUNT (AUTO) 317 K/uL (140-450); RED BLOOD CELL COUNT(AUTO) 4.61 MIL/uL (4.20-5.40); RED CELL DISTRIBUTION WIDTH 17.5 % (11.6-13.7); WHITE BLOOD COUNT (AUTO) 22.4 K/uL (4.8-10.8)
[2023-09-12 16:48] VITALS: PULSE 94; RESP 14; O2SAT 100
[2023-09-12 17:04] LABS: ALANINE AMINOTRANSFERASE 65 U/L (12-78); ALBUMIN 2.6 g/dL (3.4-5.0); ALKALINE PHOSPHATASE 133 U/L (50-136); ASPARTATE AMINOTRANSFERASE 34 U/L (15-37); CALCIUM 9.2 mg/dL (8.5-10.1); CHLORIDE 85 mmol/L (98-107); CREATININE 0.8 mg/dL (0.6-1.3); GLUCOSE 145 mg/dL (74-106); POTASSIUM 3.2 mmol/L (3.5-5.1); SODIUM SERUM 130 mmol/L (136-145); TOTAL PROTEIN, SERUM 7.5 g/dL (6.4-8.2); UREA NITROGEN, BLOOD 16 mg/dL (7-18)
[2023-09-12 17:17] LABS: ANION GAP 4.6 (8-16); CARBON DIOXIDE 43.6 mmol/L (21-32)
[2023-09-12] MEDS ORDERED: cefTRIAXone 1,000 MG VIAL ONE (17:19)
[2023-09-12] MEDS ORDERED: WATER STERILE 10 ML MC ONE (17:23)
[2023-09-12 17:42] LABS: APPEARANCE,URINE CLEAR (CLEAR); BILIRUBIN,URINE NEGATIVE (NEGATIVE); BLOOD, URINE 3+ (NEGATIVE); COLOR,URINE YELLOW (YELLOW); LEUKOCYTE ESTERASE ,URINE NEGATIVE (NEGATIVE); NITRITE, URINE NEGATIVE (NEGATIVE); PROTEIN,URINE 1+ (NEGATIVE); UGLUCOSE NEGATIVE (NEGATIVE); UROBILINOGEN,URINE 0.2 EU/dL (0.2 - 1)
[2023-09-12 17:47] LABS: BACTERIA,URINE FEW /HPF (None Seen); RBC,URINE 20-50 /HPF (0-5); SQUAMOUS EPITHELIAL CELL,UR 0-3 (FEW) /LPF (0-3 (FEW)); WBC,URINE 0-5 /HPF (0-5)
[2023-09-12] MEDS ORDERED: ALBUTEROL SULFATE/IPRATROPIU 3 ML SOL IH PRN (18:15)
[2023-09-12] MEDS ORDERED: VANCOMYCIN PER PHARMACY MC PRN (18:15)
[2023-09-12 18:42] LABS: LACTIC ACID 2.1 mmol/L (0.4-2.0)
[2023-09-12 18:50] VITALS: O2SAT 100
[2023-09-12] MEDS: ALBUTEROL SULFATE/IPRATROPIU 3 ML SOL IH SCH ×2 (19:00→23:00)
[2023-09-12] MEDS ORDERED: methylPREDNISolone SS 40 MG in WATER STERILE 1 ML MC SCH (21:00)
[2023-09-12 21:05] VITALS: PULSE 91; RESP 20; O2SAT 99
[2023-09-12 21:13] VITALS: BP 121/73; PULSE 91; RESP 20; TEMP 97; O2SAT 99
[2023-09-12] MEDS ORDERED: PIPERACILLIN/TAZOBACTAM 3.375 GM VIAL IV ONE (21:46)
[2023-09-12] MEDS: FUROSEMIDE 40 MG/4 ML VIAL IVP SCH (21:52)
[2023-09-12] MEDS: PIPERACILLIN/TAZOBACTAM 3.375 GM in DEXTROSE 5% 50 ML IV SCH (21:52)
[2023-09-13] VITALS (11 sets, daily range): BP systolic 102–126; BP diastolic 55–76; PULSE 70–125; RESP 16–28; TEMP 96.7–98.4; O2SAT 95–100
[2023-09-13] MEDS: ALBUTEROL SULFATE/IPRATROPIU 3 ML SOL IH SCH ×6 (03:00→23:00)
[2023-09-13] MEDS ORDERED: methylPREDNISolone SS 40 MG/ML VIAL ONE (04:59)
[2023-09-13] MEDS ORDERED: WATER STERILE 0 ML MC ONE (04:59)
[2023-09-13] MEDS ORDERED: PIPERACILLIN/TAZOBACTAM 3.375 GM VIAL IV ONE (04:59)
[2023-09-13] MEDS ORDERED: methylPREDNISolone SS 40 MG in WATER STERILE 1 ML IVP SCH (05:00)
[2023-09-13] MEDS: PIPERACILLIN/TAZOBACTAM 3.375 GM in DEXTROSE 5% 50 ML IV SCH ×3 (05:18→22:32)
[2023-09-13 07:20] LABS: BASOPHILS % (AUTO) 0.1 % (0.0-2.0); HEMATOCRIT 36.4 % (36-48); HEMOGLOBIN 11.7 g/dL (12.0-16.0); LYMPHOCYTES # (AUTO) 0.3 K/uL (2.5-16.5); LYMPHOCYTES % (AUTO) 1.5 % (20.5-51.1); MEAN CORPUSCULAR HEMOGLOBIN 29 pg (27-31); MEAN CORPUSCULAR HGB CONC 32 g/dL (33-37); MEAN CORPUSCULAR VOLUME 88.4 fL (80-94); MONOCYTES # (AUTO) 0.3 K/uL (0.8-1.0); MONOCYTES % (AUTO) 1.4 % (1.7-9.3); PLATELET COUNT (AUTO) 247 K/uL (140-450); RED BLOOD CELL COUNT(AUTO) 4.11 MIL/uL (4.20-5.40); RED CELL DISTRIBUTION WIDTH 17.3 % (11.6-13.7); WHITE BLOOD COUNT (AUTO) 18.6 K/uL (4.8-10.8)
[2023-09-13 07:42] LABS: ALANINE AMINOTRANSFERASE 46 U/L (12-78); ALBUMIN 2.1 g/dL (3.4-5.0); ALKALINE PHOSPHATASE 113 U/L (50-136); ASPARTATE AMINOTRANSFERASE 36 U/L (15-37); CALCIUM 8.5 mg/dL (8.5-10.1); CHLORIDE 87 mmol/L (98-107); CREATININE 0.7 mg/dL (0.6-1.3); GLUCOSE 189 mg/dL (74-106); POTASSIUM 3.4 mmol/L (3.5-5.1); SODIUM SERUM 133 mmol/L (136-145); TOTAL BILIRUBIN 0.8 mg/dL (0.0-1.0); TOTAL PROTEIN, SERUM 6.5 g/dL (6.4-8.2); UREA NITROGEN, BLOOD 17 mg/dL (7-18)
[2023-09-13 07:49] LABS: CARBON DIOXIDE 47.4 mmol/L (21-32)
[2023-09-13] MEDS: VANCOMYCIN HCL 750 MG in DEXTROSE 5% 250 ML IV SCH (08:14)
[2023-09-13] MEDS: FUROSEMIDE 40 MG/4 ML VIAL IVP SCH ×3 (09:14→22:33)
[2023-09-13] MEDS ORDERED: DEXTROSE 50% 50 ML SYR IVP PRN (10:30)
[2023-09-13] MEDS: BLOOD GLUCOSE MONITORING 1 DEV DEV FS SCH ×3 (12:12→20:49)
[2023-09-13] MEDS: INSULIN LISPRO SLIDING SCALE 100 UNITS/ML VIAL SUBQ PRN ×2 (12:21→20:52)
[2023-09-13] MEDS: methylPREDNISolone SS 40 MG/ML VIAL IVP SCH ×2 (12:56→22:32)
[2023-09-13] MEDS: POTASSIUM CHLORIDE 20% 40 MEQ/15 ML UDC PO PRN (13:12)
[2023-09-13] MEDS ORDERED: LORazepam 2 MG/ML VIAL IM/IVP PRN (13:45)
[2023-09-13] MEDS: LORazepam 0.5 MG TAB PO PRN (14:01)
[2023-09-14] VITALS (16 sets, daily range): BP systolic 98–139; BP diastolic 47–73; PULSE 91–125; RESP 16–22; TEMP 96.9–98.6; O2SAT 94–100
[2023-09-14] MEDS: ALBUTEROL SULFATE/IPRATROPIU 3 ML SOL IH SCH ×6 (04:39→23:29)
[2023-09-14] MEDS: methylPREDNISolone SS 40 MG/ML VIAL IVP SCH ×2 (06:42→21:10)
[2023-09-14] MEDS: PIPERACILLIN/TAZOBACTAM 3.375 GM in DEXTROSE 5% 50 ML IV SCH ×3 (06:42→21:10)
[2023-09-14] MEDS: BLOOD GLUCOSE MONITORING 1 DEV DEV FS SCH ×4 (07:00→21:17)
[2023-09-14] MEDS: INSULIN LISPRO SLIDING SCALE 100 UNITS/ML VIAL SUBQ PRN ×3 (07:01→17:11)
[2023-09-14] MEDS: VANCOMYCIN HCL 750 MG in DEXTROSE 5% 250 ML IV SCH (08:40)
[2023-09-14 08:53] LABS: CALCIUM 8.6 mg/dL (8.5-10.1); CHLORIDE 87 mmol/L (98-107); CREATININE 0.7 mg/dL (0.6-1.3); GLUCOSE 170 mg/dL (74-106); POTASSIUM 3.3 mmol/L (3.5-5.1); UREA NITROGEN, BLOOD 18 mg/dL (7-18)
[2023-09-14 09:03] LABS: ANION GAP 6.8 (8-16); CARBON DIOXIDE 46.5 mmol/L (21-32); SODIUM SERUM 137 mmol/L (136-145)
[2023-09-14] MEDS ORDERED: THERAHONEY GEL 42.5 GM TP PRN (10:00)
[2023-09-14] MEDS ORDERED: Z-GUARD PASTE TP PRN (10:00)
[2023-09-14 10:12] LABS: BASOPHILS # (AUTO) 0.1 K/uL (0.00-0.22); BASOPHILS % (AUTO) 0.2 % (0.0-2.0); EOSINOPHILS % (AUTO) 0.1 % (0.0-4.0); HEMATOCRIT 37.4 % (36-48); HEMOGLOBIN 11.8 g/dL (12.0-16.0); LYMPHOCYTES # (AUTO) 0.4 K/uL (2.5-16.5); LYMPHOCYTES % (AUTO) 1.4 % (20.5-51.1); MEAN CORPUSCULAR HEMOGLOBIN 28 pg (27-31); MEAN CORPUSCULAR HGB CONC 32 g/dL (33-37); MEAN CORPUSCULAR VOLUME 89.1 fL (80-94); MONOCYTES # (AUTO) 1.9 K/uL (0.8-1.0); NEUTROPHILS # (AUTO) 29.7 K/uL (1.8-7.7); NEUTROPHILS % (AUTO) 92.3 % (42.2-75.2); PLATELET COUNT (AUTO) 249 K/uL (140-450); RED BLOOD CELL COUNT(AUTO) 4.19 MIL/uL (4.20-5.40); RED CELL DISTRIBUTION WIDTH 17.5 % (11.6-13.7)
[2023-09-14 10:17] LABS: WHITE BLOOD COUNT (AUTO) 32.1 K/uL (4.8-10.8)
[2023-09-14] MEDS: FUROSEMIDE 40 MG/4 ML VIAL IVP SCH ×3 (10:29→22:05)
[2023-09-14 12:11] LABS: BLOOD GAS PH 7.462 (7.35-7.45)
[2023-09-14 12:12] LABS: BLOOD GAS BASE EXCESS 26.5 mmol/L (-2.0-2.0); BLOOD GAS HCO3 55.5 mmol/L (22-26); BLOOD GAS PCO2 79.5 mmHg (35-45); BLOOD GAS PO2 61.8 mmHg (75-100)
[2023-09-14 12:13] LABS: BLOOD GAS O2 SAT% 93.6 % (92.0-98.5); FRACTIONATED INSPIRED OXYGEN 0.28 % (0.21-100.00)
[2023-09-14] MEDS: Z-GUARD PASTE TP SCH (13:15)
[2023-09-14] MEDS: THERAHONEY GEL 42.5 GM TP SCH (13:15)
[2023-09-14] MEDS: LORazepam 0.5 MG TAB PO PRN (13:17)
[2023-09-14] MEDS: ACETYLCYSTEINE 10% (100 MG/ML) 100 MG/ML VIAL INH SCH (19:54)
[2023-09-14] MEDS: POTASSIUM CHLORIDE 20% 40 MEQ/15 ML UDC PO PRN (22:32)
[2023-09-15] VITALS (11 sets, daily range): BP systolic 95–111; BP diastolic 42–61; PULSE 78–165; RESP 16–24; TEMP 97.3–98.8; O2SAT 95–99
[2023-09-15] MEDS: ALBUTEROL SULFATE/IPRATROPIU 3 ML SOL IH SCH ×6 (03:59→22:39)
[2023-09-15] MEDS: Z-GUARD PASTE TP SCH ×2 (04:00→15:22)
[2023-09-15] MEDS: PIPERACILLIN/TAZOBACTAM 3.375 GM in DEXTROSE 5% 50 ML IV SCH ×3 (05:14→22:12)
[2023-09-15] MEDS: BLOOD GLUCOSE MONITORING 1 DEV DEV FS SCH ×4 (06:14→22:35)
[2023-09-15] MEDS: INSULIN LISPRO SLIDING SCALE 100 UNITS/ML VIAL SUBQ PRN ×4 (06:21→22:42)
[2023-09-15] MEDS: ACETYLCYSTEINE 10% (100 MG/ML) 100 MG/ML VIAL INH SCH ×3 (07:05→19:48)
[2023-09-15 08:09] LABS: BASOPHILS % (AUTO) 0.1 % (0.0-2.0); HEMATOCRIT 39.5 % (36-48); HEMOGLOBIN 12.3 g/dL (12.0-16.0); LYMPHOCYTES # (AUTO) 0.3 K/uL (2.5-16.5); LYMPHOCYTES % (AUTO) 1.1 % (20.5-51.1); MEAN CORPUSCULAR HEMOGLOBIN 28 pg (27-31); MEAN CORPUSCULAR HGB CONC 31 g/dL (33-37); MONOCYTES % (AUTO) 13.1 % (1.7-9.3); NEUTROPHILS % (AUTO) 85.7 % (42.2-75.2); PLATELET COUNT (AUTO) 262 K/uL (140-450); RED BLOOD CELL COUNT(AUTO) 4.43 MIL/uL (4.20-5.40); RED CELL DISTRIBUTION WIDTH 17.6 % (11.6-13.7)
[2023-09-15 08:12] LABS: WHITE BLOOD COUNT (AUTO) 30.3 K/uL (4.8-10.8)
[2023-09-15 08:42] LABS: CALCIUM 8.5 mg/dL (8.5-10.1); CHLORIDE 83 mmol/L (98-107); CREATININE 1.1 mg/dL (0.6-1.3); GLUCOSE 210 mg/dL (74-106); SODIUM SERUM 138 mmol/L (136-145); UREA NITROGEN, BLOOD 25 mg/dL (7-18)
[2023-09-15 09:00] LABS: ANION GAP 5.5 (8-16); CARBON DIOXIDE 52.3 mmol/L (21-32); POTASSIUM 2.8 mmol/L (3.5-5.1)
[2023-09-15] MEDS: VANCOMYCIN HCL 750 MG in DEXTROSE 5% 250 ML IV SCH (09:47)
[2023-09-15] MEDS: FUROSEMIDE 40 MG/4 ML VIAL IVP SCH ×2 (09:48→22:20)
[2023-09-15] MEDS: methylPREDNISolone SS 40 MG/ML VIAL IVP SCH (09:48)
[2023-09-15] MEDS: POTASSIUM CHLORIDE 20% 40 MEQ/15 ML UDC PO PRN (09:59)
[2023-09-15] MEDS ORDERED: POTASSIUM CHLORIDE 40 MEQ, LIDOCAINE 1% 25 MG in NACL 0.9% 250 ML IV ONE (11:30)
[2023-09-15] MEDS: THERAHONEY GEL 42.5 GM TP SCH (13:00)
[2023-09-16] VITALS (11 sets, daily range): BP systolic 91–113; BP diastolic 53–94; PULSE 71–168; RESP 18–24; TEMP 96.5–98.4; O2SAT 93–98
[2023-09-16] MEDS: ALBUTEROL SULFATE/IPRATROPIU 3 ML SOL IH SCH ×5 (03:46→20:45)
[2023-09-16] MEDS: Z-GUARD PASTE TP SCH ×2 (05:55→13:15)
[2023-09-16] MEDS: PIPERACILLIN/TAZOBACTAM 3.375 GM in DEXTROSE 5% 50 ML IV SCH ×2 (05:56→13:14)
[2023-09-16] MEDS: BLOOD GLUCOSE MONITORING 1 DEV DEV FS SCH ×3 (06:35→17:01)
[2023-09-16] MEDS: INSULIN LISPRO SLIDING SCALE 100 UNITS/ML VIAL SUBQ PRN ×2 (06:38→17:05)
[2023-09-16 06:48] LABS: BASOPHILS % (AUTO) 0.1 % (0.0-2.0); HEMATOCRIT 39.8 % (36-48); HEMOGLOBIN 12.8 g/dL (12.0-16.0); LYMPHOCYTES # (AUTO) 0.6 K/uL (2.5-16.5); LYMPHOCYTES % (AUTO) 1.9 % (20.5-51.1); MEAN CORPUSCULAR HEMOGLOBIN 28 pg (27-31); MEAN CORPUSCULAR HGB CONC 32 g/dL (33-37); MEAN CORPUSCULAR VOLUME 88.5 fL (80-94); MONOCYTES # (AUTO) 3.9 K/uL (0.8-1.0); MONOCYTES % (AUTO) 12.4 % (1.7-9.3); NEUTROPHILS # (AUTO) 27.1 K/uL (1.8-7.7); NEUTROPHILS % (AUTO) 85.6 % (42.2-75.2); PLATELET COUNT (AUTO) 233 K/uL (140-450); RED CELL DISTRIBUTION WIDTH 17.9 % (11.6-13.7)
[2023-09-16 06:52] LABS: WHITE BLOOD COUNT (AUTO) 31.6 K/uL (4.8-10.8)
[2023-09-16 07:12] LABS: CALCIUM 9.1 mg/dL (8.5-10.1); CHLORIDE 86 mmol/L (98-107); CREATININE 1.5 mg/dL (0.6-1.3); GLUCOSE 189 mg/dL (74-106); POTASSIUM 4.8 mmol/L (3.5-5.1); SODIUM SERUM 136 mmol/L (136-145); UREA NITROGEN, BLOOD 39 mg/dL (7-18)
[2023-09-16 07:18] LABS: ANION GAP 10.2 (8-16)
[2023-09-16 07:35] LABS: CARBON DIOXIDE 44.6 mmol/L (21-32)
[2023-09-16] MEDS: ACETYLCYSTEINE 10% (100 MG/ML) 100 MG/ML VIAL INH SCH ×2 (08:49→20:45)
[2023-09-16] MEDS ORDERED: predniSONE 20 MG TAB PO SCH (09:00)
[2023-09-16] MEDS: FUROSEMIDE 40 MG/4 ML VIAL IVP SCH (09:55)
[2023-09-16] MEDS: THERAHONEY GEL 42.5 GM TP SCH (13:15)
[2023-09-16] MEDS ORDERED: DIGOXIN 0.25 MG/ML AMP IV SCH ×2 (15:03→21:00)
[2023-09-17] MEDS ORDERED: DIGOXIN 0.25 MG/ML AMP IV SCH (03:00)
== END 2023-09-17 02:26 | DRG 177 ==
LOC: MED 16:07 → MTU 18:22 → MMU 09-16 20:14
PROVIDERS: ADMIT Family Medicine; ATTEND Family Medicine
DX: J69.0 Pneumonitis due to inhalation of food and vomit (principal); J96.21 Acute and chronic respiratory failure with hypoxia; E46 Unspecified protein-calorie malnutrition; J44.0 Chronic obstructive pulmonary disease with (acute) lower respiratory infection; I24.89 Other forms of acute ischemic heart disease; N17.9 Acute kidney failure, unspecified; R65.10 Systemic inflammatory response syndrome (SIRS) of non-infectious origin without acute organ dysfunction; I50.9 Heart failure, unspecified; I11.0 Hypertensive heart disease with heart failure; Z68.24 Body mass index [BMI] 24.0-24.9, adult; Z66 Do not resuscitate; I48.91 Unspecified atrial fibrillation
CPT/HCPCS: 36415; 36600; 70450; 71045; 76604; 80048; 80053; 80202; 81001; 82803; 82948; 83605; 83880; 84484; 85025; 85379; 87040; 87081; 87086; 92526; 93005; 94640; 96365; 96375; 99291; J0696; J1160; J1815; J1940; J2001; J2543; J2920; J2930; J3370; J3480; J7030; J7060; J7512; Q0092